=== PATIENT | female | born 1970 | race African-American/Black ===

== ENCOUNTER → 2017-01-24 16:41 | Outpatient (CLI) | payer OTHER | END | disposition home or self-care (01) | LOC: D.CT 16:41 | DX: G43.909 Migraine, unspecified, not intractable, without status migrainosus (principal) ==

== ENCOUNTER 2019-01-27 07:07 | Emergency (ER) | payer OTHER ==
[~2019-01-27] VITALS: Ht 172.7 cm; Wt 95.0 kg
[2019-01-27 07:10] VITALS: BP 137/85; Ht 172.7 cm; Wt 95.0 kg
[2019-01-27] MEDS ORDERED: ELIQUIS5 MG PO (07:12)
[2019-01-27] MEDS ORDERED: HYDROCHLOROTHIA25 MG PO (07:12)
[2019-01-27] MEDS ORDERED: PRINIVIL20 MG (07:12)
== END 2019-01-27 07:45 | disposition left against medical advice (07) ==
LOC: D.ER 07:07
DX: G43.909 Migraine, unspecified, not intractable, without status migrainosus (principal)